=== PATIENT | female | born 1995 | race Caucasian/White ===

== ENCOUNTER 2016-03-09 17:51 | Emergency (ER) | payer OTHER ==
[2016-03-09] MEDS ORDERED: PROCHLORPERAZINE MALEATE 10 MG TABLET PO ONE (18:45)
[2016-03-09] MEDS ORDERED: ACETAMINOPHEN 325 MG TABLET PO ONE (18:45)
[2016-03-09] MEDS ORDERED: DIPHENHYDRAMINE HCL 50 MG CAPSULE PO ONE ×2 (18:45→23:11)
--- NOTE | 2016-03-09 18:47 | ER Document Report ---
ED Medical Screen (RME) - General Stated Complaint: VOMITING Time seen by provider: 18:42 Mode of Arrival: Ambulatory Information source: Patient Notes: 20 yo female c/o bilateral eye blurriness, vision gone for 2 hours, spots, can see 1/2 of what she is in field of vision. Hx migrained which has caused visual spots, but never lost it completely. Headahce down back of head to base of skull but now on the right side. TRAVEL OUTSIDE OF THE [place] IN LAST 30 DAYS: No - Related Data Allergies/Adverse Reactions: promethazine HCl [From Phenergan] Allergy (Severe, Verified 03/09/16 18:42) involuntary muscle movements amoxicillin trihydrate [From Augmentin] Adverse Reaction (Severe, Verified 03/09 18:42) severe abdominal pain/Vomiting,diarrhea Potassium Clavulanate * [From Augmentin] Adverse Reaction (Severe, Verified 10/16 18:42) severe abdominal pain/Vomiting,diarrhea Past Medical History - Past Medical History Cardiac Medical History: Denies: Hx Coronary Artery Disease, Hx Heart Attack, Hx Hypertension Pulmonary Medical History: Denies: Hx Asthma, Hx Bronchitis, Hx COPD, Hx Pneumonia Neurological Medical History: Denies: Hx Cerebrovascular Accident, Hx Seizures Renal/ Medical History: Reports: Hx Kidney Stones Musculoskeltal Medical History: Denies Hx Arthritis Psychiatric Medical History: Reports: Hx Depression - Fluoxetine Past Surgical History: Reports: Hx Abdominal Surgery - laproscopy for endometriosis, Hx Cholecystectomy, Hx Gynecologic Surgery, Hx Orthopedic Surgery - Immunizations Immunizations up to date: Yes Hx Diphtheria, Pertussis, Tetanus Vaccination: Yes
[2016-03-09] MEDS ORDERED: HYDROMORPHONE HCL INJ/PF 2 MG/ML AMPULE IV ONE (22:20)
--- NOTE | 2016-03-09 22:53 | ER Document Report ---
ED General - General Chief Complaint: Headache Stated Complaint: VOMITING Mode of Arrival: Ambulatory Notes: Patient is 20-year-old female who presents with complaint of a headache that started yesterday. With a headache she had approximately 20 minute loss of vision. She said headache is on the right side. No focal weakness or numbness. Some dizziness. She did have one episode of vomiting. She says towards the end of the episode of vomiting she did have some blood in emesis. She has slight chest pain. She is very sensitive to light and sound. Patient says she's had similar headaches in the past. She says severe migraine and convex migraine headaches which would give her spots in her vision as well as weakness and numbness on her one side. She says only thing different about this headache is that instead of just having spots in her vision she had loss of vision for a period of time. Her vision is completely normal this time. She has no other focal neurologic deficits. She is to take Maxalt for headaches but has not had it for a while because her headaches have been somewhat well controlled for last few years. No recent fevers. No infections. No other complaints at this time. TRAVEL OUTSIDE OF THE [place] IN LAST 30 DAYS: No - Related Data Allergies/Adverse Reactions: promethazine HCl [From Phenergan] Allergy (Severe, Verified 03/09/16 18:42) involuntary muscle movements amoxicillin trihydrate [From Augmentin] Adverse Reaction (Severe, Verified 03/09 18:42) severe abdominal pain/Vomiting,diarrhea Potassium Clavulanate * [From Augmentin] Adverse Reaction (Severe, Verified 10/16 18:42) severe abdominal pain/Vomiting,diarrhea Past Medical History - General Information source: Patient - Social History Smoking Status: Unknown if Ever Smoked Chew tobacco use (# tins/day): No Frequency of alcohol use: Occasional Drug Abuse: None Family History: Reviewed & Not Pertinent Patient has suicidal ideation: No Patient has homicidal ideation: No - Past Medical History Cardiac Medical History: Denies: Hx Coronary Artery Disease, Hx Heart Attack, Hx Hypertension Pulmonary Medical History: Denies: Hx Asthma, Hx Bronchitis, Hx COPD, Hx Pneumonia Neurological Medical History: Denies: Hx Cerebrovascular Accident, Hx Seizures Renal/ Medical History: Reports: Hx Kidney Stones Musculoskeltal Medical History: Denies Hx Arthritis Psychiatric Medical History: Reports: Hx Depression - Fluoxetine Past Surgical History: Reports: Hx Abdominal Surgery - laproscopy for endometriosis, Hx Cholecystectomy, Hx Gynecologic Surgery, Hx Orthopedic Surgery - Immunizations Immunizations up to date: Yes Hx Diphtheria, Pertussis, Tetanus Vaccination: Yes Review of Systems - Review of Systems Notes: My Normal Review Basic REVIEW OF SYSTEMS: CONSTITUTIONAL : Denies fever, chills, or sweats. Denies recent illness. EENT: Denies eye, ear, throat, or mouth pain or symptoms. Denies nasal or sinus congestion. CARDIOVASCULAR: Some chest pain after vomiting. RESPIRATORY: Denies cough, cold, or chest congestion. Denies shortness of breath, difficulty breathing, or wheezing. GASTROINTESTINAL: Denies abdominal pain. One episode of vomiting. Denies constipation. Last BM: GENITOURINARY: Denies difficulty urinating, painful urination, burning, frequency, or blood in urine. MUSCULOSKELETAL: Denies neck or back pain or joint pain or swelling. SKIN: Denies rash or skin lesions. NEUROLOGICAL: Denies altered mental status or loss of consciousness. Has a headache. Denies weakness or paralysis or loss of use of either side. Denies problems with gait or speech. Denies sensory or motor loss. ALL OTHER SYSTEMS REVIEWED AND NEGATIVE. Physical Exam - Vital signs Vitals: Temp Pulse Resp BP Pulse Ox 97.9 F 63 12 116/64 100 03/09/16 18:20 03/09/16 18:20 03/09/16 18:20 03/09/16 18:20 03/09/16 18:20 - Notes Notes: General Appearance: Well nourished, alert, cooperative, no acute distress, mild obvious discomfort. Well-appearing. Vitals: reviewed, See vital signs table. Head: no swelling or tenderness to the head Eyes: PERRL, EOMI, Conjuctiva clear Mouth: No decreasd moisture Throat: No tonsillar inflammation, No airway obstruction, No lymphadenopathy Neck: Supple, no neck tenderness, No thyromegaly Lungs: No wheezing, No rales, No rhonci, No accessory muscle use, good air exchange bilaterally. Heart: Normal rate, Regular rythm, No murmur, no rub Abdomen: Normal BS, soft, No rigidity, No abdominal tenderness, No guarding, no rebound, no abdominal masses, no organomegaly Extremities: strength 5/5 in all extremities, good pulses in all extremities, no swelling or tenderness in the extremities, no edema. Skin: warm, dry, appropriate color, no rash Neuro: speech clear, oriented x 3, normal affect, responds appropriately to questions. Cranial nerves II through XII are intact. Distal sensation intact. Patient moves all extremities without difficulty. Normal coordination of movements. Course - Vital Signs Vital signs: Temp Pulse Resp BP Pulse Ox 97.9 F 63 12 116/64 100 03/09/16 18:20 03/09/16 18:20 03/09/16 18:20 03/09/16 18:20 03/09/16 18:20 - Transfer of Care Notes: 03/10/16 00:12 I do suspect that patient is having exacerbation of one of her chronic migraines. I do not suspect subarachnoid hemorrhage. I suspect that this headache is related to her history of chronic complex migraines. Difference was that her visual changes or more intense than they have been in the past. Otherwise, her headache was negative X and location as it has been in the past. Headache was gradual in onset and gradually worsening. Headache was not maximal in onset. She's had no fevers. She did have small metal blood or emesis. She's had no further bleeding with vomiting. She is pain-free at this time. She looks well. She has no pain to palpation of her abdomen. There is no evidence of esophageal injuries on chest x-ray and clinically I do not suspect an esophageal injury. At this time for the patient is safe to be discharged home. She is to have Maxalt which has helped in the past. I did represcribed Maxalt for her. Encouraged return to ER immediately if she has recurrent worsening headaches, any recurrence of vomiting, or she feels unwell. Patient agrees with plan and will be discharged home. Dictation of this chart was performed using voice recognition software; therefore, there may be some unintended grammatical errors. Discharge - Discharge Clinical Impression: Headache Qualifiers: Headache type: unspecified Headache chronicity pattern: episodic headache Intractability: not intractable Qualified Code(s): R51 - Headache Condition: Good Disposition: HOME, SELF-CARE Additional Instructions: HEADACHE: The physician does not feel that the headache you are experiencing has a serious underlying cause. Most headaches are due to emotional stress, with resultant muscle tension (tension headache). Occasionally, headaches are secondary to changes in the blood vessels of the scalp (vascular headache and migraine headache). Sometimes, a headache is the first symptom of another developing illness, such as a viral infection. You have no evidence of stroke, bleeding, meningitis, or other serious cause of your headache. The treatment of headaches varies with the severity and cause of the pain. Not all headaches need pain shots. In fact, there is evidence that using narcotics for headaches may make them worse in the long run. The physician will determine the therapy that's in your best interest. If you develop a fever, if the headache is different from any you've previously experienced, or if the headache progressively worsens, then call your physician at once or go to the emergency room. PAIN MEDICATION INJECTION: You have received an injection of a pain medication. You should experience significant pain relief within 45 minutes. This drug is a narcotic - - it will impair your judgement, slow your reaction time and make you sleepy ( as well as relieve your pain). Narcotics also can cause nausea. You should not drive, work with machinery, or perform any task requiring mental alertness until all effects of the medication are gone -- six to eight hours. Do not take any alcohol, or sedatives, and do not take any other medication without checking with your physician. FOLLOW-UP CARE: If you have been referred to a physician for follow-up care, call the physician s office for an appointment as you were instructed or within the next two days. If you experience worsening or a significant change in your symptoms, notify the physician immediately or return to the Emergency Department at any time for re-evaluation. Please return to the ER immediately if you have recurrence and worsening of your headache, recurrent chest pain, fevers, or feel unwell. Please follow up with your doctor for reevaluation in 2-3 days. Please return to ER immediately if you have any recurrence of vomiting blood. Prescriptions: Rizatriptan Benzoate [Maxalt] 5 mg PO BID PRN #15 tablet PRN Reason:
[2016-03-09] MEDS ORDERED: DIPHENHYDRAMINE HCL 25 MG CAPSULE PO ONE (23:47)
[2016-03-10 00:30] VITALS: BP 113/70
== END 2016-03-10 00:34 | disposition home or self-care (01) ==
LOC: ER 17:51
DX: R51 Headache (principal); R11.10 Vomiting, unspecified
CPT/HCPCS: 99284; 96374; 71020; 70450; J1170; S0183

== ENCOUNTER → 2016-03-11 | Outpatient (CLI) | payer OTHER | LOC: RAD 08:37 | PROVIDERS: ATTEND Urology | DX: N20.0 Calculus of kidney (principal) | CPT/HCPCS: 74176 ==

== ENCOUNTER → 2016-05-07 | Outpatient (CLI) | payer OTHER | LOC: CCC 15:55 | DX: Z12.4 Encounter for screening for malignant neoplasm of cervix (principal) | CPT/HCPCS: 88142 ==

== ENCOUNTER → 2016-05-13 | Outpatient (CLI) | payer OTHER ==
[2016-05-13 10:58] LABS: ABSOLUTE EOSINOPHILS # (AUTO) 0.1 10^3/uL (0.0-0.6); ABSOLUTE LYMPHOCYTES (AUTO) 2.2 10^3/uL (0.5-4.7); ABSOLUTE MONOCYTES (AUTO) 0.6 10^3/uL (0.1-1.4); BASOPHILS % (AUTO) 0.6 % (0-2); HEMATOCRIT 39.9 % (36.0-47.0); HEMOGLOBIN 13.6 g/dL (12.0-15.5); HGB HCT DIFFERENCE 0.9; LYMPHOCYTES % (AUTO) 31.5 % (13-45); MEAN CORPUSCULAR HGB CONC 34.2 g/dL (32.0-36.0); MEAN CORPUSCULAR VOLUME 94 fl (80-97); MONOCYTES % (AUTO) 9.1 % (3-13); RED BLOOD COUNT 4.26 10^6/uL (3.72-5.28); RED CELL DISTRIBUTION WIDTH 12.9 % (11.5-14.0); SEGMENTED NEUTROPHILS % (AUTO) 56.8 % (42-78); WHITE BLOOD COUNT 7.1 10^3/uL (4.0-10.5)
[2016-05-13 11:14] LABS: ALANINE AMINOTRANSFERASE 22 U/L (9-52); ALBUMIN 4.6 g/dL (3.5-5.0); ALKALINE PHOSPHATASE 60 U/L (38-126); ANION GAP 10 (5-19); ASPARTATE AMINO TRANSFERASE 15 U/L (14-36); BILIRUBIN,TOTAL 0.7 mg/dL (0.2-1.3); BLOOD UREA NITROGEN 12 mg/dL (7-20); CALCIUM 10.4 mg/dL (8.4-10.2); CARBON DIOXIDE 26 mmol/L (22-30); CHLORIDE 107 mmol/L (98-107); CHOLESTEROL 122.92 mg/dL (0-200); Direct HDL 54 mg/dL (>40); GLUCOSE 82 mg/dL (75-110); POTASSIUM 3.9 mmol/L (3.6-5.0); SODIUM 142.6 mmol/L (137-145); TOTAL PROTEIN 7.1 g/dL (6.3-8.2); TRIGLYCERIDES 64 mg/dL (<150)
[2016-05-13 11:25] LABS: DIRECT LDL 46 mg/dL (<100)
== END ==
LOC: OD 09:55
DX: N92.0 Excessive and frequent menstruation with regular cycle (principal)
CPT/HCPCS: 36415; 80053; 80061; 83036; 84443; 85025

== ENCOUNTER → 2016-05-26 | Outpatient (CLI) | payer OTHER ==
[2016-05-26 14:54] LABS: CALCIUM 9.6 mg/dL (8.4-10.2); MAGNESIUM 2.2 mg/dL (1.6-2.3); PHOSPHORUS 3.7 mg/dL (2.5-4.5)
== END ==
LOC: CCC 12:51
DX: J84.9 Interstitial pulmonary disease, unspecified (principal)
CPT/HCPCS: 36415; 82310; 83735; 84100; 85730

== ENCOUNTER 2016-06-07 00:43 | Emergency (ER) | payer OTHER ==
[2016-06-07 01:54] VITALS: BP 124/73
--- NOTE | 2016-06-07 03:47 | ER Document Report ---
ED General - General Chief Complaint: Head Injury without LOC Stated Complaint: HEAD INJURY Notes: Patient is a 20-year-old female presents with complaint of hitting her head on the concrete. She was wrestling with her friend. She says it a or just play wrestling. This was not an assault. Patient says that he came down on top of her and her head hit the concrete. He weighs approximately 240 pounds. Since then she's had headache, dizziness, spinning type sensation. She denies being on blood thinners. She plans of pain in her head and neck. No pain in her extremities. No pain in her chest or abdomen. No other complaints at this time. TRAVEL OUTSIDE OF THE [place] IN LAST 30 DAYS: No - Related Data Allergies/Adverse Reactions: promethazine HCl [From Phenergan] Allergy (Severe, Verified 06/07/16 03:50) involuntary muscle movements amoxicillin trihydrate [From Augmentin] Adverse Reaction (Severe, Verified 06/07 03:50) severe abdominal pain/Vomiting,diarrhea Potassium Clavulanate * [From Augmentin] Adverse Reaction (Severe, Verified 10/16 03:50) severe abdominal pain/Vomiting,diarrhea Past Medical History - Social History Smoking Status: Unknown if Ever Smoked Frequency of alcohol use: None Drug Abuse: None Family History: Reviewed & Not Pertinent Patient has suicidal ideation: No Patient has homicidal ideation: No - Past Medical History Cardiac Medical History: Denies: Hx Coronary Artery Disease, Hx Heart Attack, Hx Hypertension Pulmonary Medical History: Denies: Hx Asthma, Hx Bronchitis, Hx COPD, Hx Pneumonia Neurological Medical History: Denies: Hx Cerebrovascular Accident, Hx Seizures Renal/ Medical History: Reports: Hx Kidney Stones. Denies: Hx Peritoneal Dialysis Musculoskeltal Medical History: Denies Hx Arthritis Psychiatric Medical History: Reports: Hx Depression - Fluoxetine Past Surgical History: Reports: Hx Abdominal Surgery - laproscopy for endometriosis, Hx Cholecystectomy, Hx Gynecologic Surgery, Hx Orthopedic Surgery - Immunizations Immunizations up to date: Yes Hx Diphtheria, Pertussis, Tetanus Vaccination: Yes Review of Systems - Review of Systems Notes: My Normal Review Basic REVIEW OF SYSTEMS: CONSTITUTIONAL : Denies fever, chills, or sweats. Denies recent illness. EENT: Mild jaw pain RESPIRATORY: Denies cough, cold, or chest congestion. Denies shortness of breath, difficulty breathing, or wheezing. GASTROINTESTINAL: Denies abdominal pain. Denies nausea, vomiting, or diarrhea. Denies constipation. Last BM: MUSCULOSKELETAL: Denies neck or back pain or joint pain or swelling. SKIN: Denies rash or skin lesions. HEMATOLOGIC : Denies easy bruising or bleeding. NEUROLOGICAL: Denies altered mental status or loss of consciousness. Has a headache. Denies weakness or paralysis or loss of use of either side. Denies problems with gait or speech. Denies sensory or motor loss. ALL OTHER SYSTEMS REVIEWED AND NEGATIVE. Physical Exam - Vital signs Vitals: Temp Pulse Resp BP Pulse Ox 97.6 F 79 18 124/73 100 06/07/16 01:50 06/07/16 01:50 06/07/16 01:50 06/07/16 01:50 06/07/16 01:50 - Notes Notes: General Appearance: Well nourished, alert, cooperative, no acute distress, mild obvious discomfort. Well-appearing. Vitals: reviewed, See vital signs table. Head: Some redness and slight swelling to the forehead. Pain palpation of the occiput. Some pain at the TMJ however the patient is able to fully open and close her jaw without difficulty. No swelling or deformities to the face itself. Eyes: PERRL, EOMI, Conjuctiva clear Mouth: No decreasd moisture Neck: Supple, some midline neck tenderness to palpation, Lungs: No wheezing, No rales, No rhonci, No accessory muscle use, good air exchange bilaterally. Heart: Normal rate, Regular rythm, No murmur, no rub Abdomen: Normal BS, soft, No rigidity, No abdominal tenderness, No guarding, no rebound, no abdominal masses, no organomegaly Back: No thoracic tenderness to palpation. Very mild lumbar tenderness palpation. No step-offs or deformities. Extremities: strength 5/5 in all extremities, good pulses in all extremities, no swelling or tenderness in the extremities, no edema. Skin: warm, dry, appropriate color, no rash Neuro: speech clear, oriented x 3, normal affect, responds appropriately to questions. Cranial nerves II through XII are intact. Distal sensation intact. Patient moves all extremities without difficulty. Course - Vital Signs Vital signs: Temp Pulse Resp BP Pulse Ox 97.6 F 79 18 124/73 100 06/07/16 01:50 06/07/16 01:50 06/07/16 01:50 06/07/16 01:50 06/07/16 01:50 - Transfer of Care Notes: 06/07/16 04:[address] scans were negative for any fracture injury to the neck or for any acute intracranial abnormality or skull fracture. I suspect she probably has obtain a concussion from her injury. I encourage to avoid any physical activity sick cause potential, to her head for at least 2 weeks. I will give her the follow-up number for Dr. Roa case her symptoms continue. I encourage return to ER immediately if she has vomiting, worsening headache, or feels unwell. Patient agrees with plan and will be discharged home. Dictation of this chart was performed using voice recognition software; therefore, there may be some unintended grammatical errors. Discharge - Discharge Clinical Impression: Concussion Qualifiers: Encounter type: initial encounter Loss of consciousness presence/duration: without LOC Qualified Code(s): S06.0X0A - Concussion without loss of consciousness, initial encounter Condition: Good Disposition: HOME, SELF-CARE Additional Instructions: Concussion You have suffered a concussion -- a temporary loss of certain brain functions due to a mild brain injury. The recovery is usually rapid and complete. The temporary problems occurring with a concussion can include loss of consciousness, dizziness, nausea, vomiting, and confusion. Repeat concussions can cause brain damage. In the future, avoid activities that will cause a blow to your head. Wear a helmet for sports such as snowboarding, biking, or skating. It's important that someone be with you for the first 24 hours. During this time, do not exercise or drive a vehicle. Do not take any pain medication stronger than acetaminophen unless prescribed by the physician. Any significant changes should be reported immediately to the physician. Signs of a problem may include: (1) Mental confusion (2) Incoordination or staggering (3) Repeated or forceful vomiting (4) Clear or bloody drainage from ear, mouth, or nose (5) Severe headache, not relieved by acetaminophen or prescribed pain medication (6) Failure to improve in 24 hours Please return to the ER immediately if you have any of the above-mentioned symptoms. Please avoid any physical activity or any activities that could potentially cause trauma to your head for at least [address] Roa if you still have symptoms after 1 week He is a concussion specialist who can help you further. Prescriptions: Meclizine HCl 25 mg PO TID PRN #30 tablet PRN Reason: dizziness Forms: Return to Work Referrals: MANJEET ROA MD [ACTIVE STAFF] - Follow up in 1 week
[2016-06-07] MEDS ORDERED: MECLIZINE HCL 25 MG TABLET PO ONE (04:30)
== END 2016-06-07 04:41 | disposition home or self-care (01) ==
LOC: ER 00:43
DX: S06.0X0A Concussion without loss of consciousness, initial encounter (principal); W22.8XXA Striking against or struck by other objects, initial encounter; Y93.83 Activity, rough housing and horseplay
CPT/HCPCS: 99283; 70450; 72125; L0120